=== PATIENT | male | born 1995 | race Two or more races ===

== ENCOUNTER 2018-07-01 20:18 | Emergency (ER) | payer SELFPAY ==
[2018-07-01] MEDS ORDERED: IBUPROFEN 600 MG TABLET PO ONE (23:00)
[2018-07-01] MEDS ORDERED: LIDOCAINE 2% VISCOUS SOLN 20 ML UDCUP PO ONE (23:00)
[2018-07-01] MEDS ORDERED: HYDROCODONE/ACETAMINOPHEN 5-325 MG (6 TAB/ER DISP) PO PRN (23:01)
--- NOTE | 2018-07-01 23:06 | ER Document Report ---
HPI - HPI Pain Level: 5 Notes: Patient with complaint of pain to left lower jaw near tooth #19. Patient reports his filling fell out. Patient reports pain started this morning, reports has taken ibuprofen with no relief. Past Medical History - General Information source: Patient - Social History Smoking Status: Current Some Day Smoker Smoking Education Provided: No Frequency of alcohol use: None Drug Abuse: None Family History: Reviewed & Not Pertinent - Medical History Medical History: Negative Past Surgical History: Reports: Hx Appendectomy - Immunizations Hx Diphtheria, Pertussis, Tetanus Vaccination: Yes Vertical Provider Document - CONSTITUTIONAL Notes: PHYSICAL EXAMINATION: GENERAL: Well-appearing, well-nourished and in no acute distress. HEAD: Atraumatic, normocephalic. EYES: Pupils equal round extraocular movements intact, conjunctiva are normal. ENT: Nares patent, erythema noted to left lower gumline along teeth 18 through 20, dental filling appears to be missing from tooth #19. NECK: Normal range of motion LUNGS: No respiratory distress Musculoskeletal: Normal range of motion NEUROLOGICAL: Normal speech, normal gait. PSYCH: Normal mood, normal affect. SKIN: Warm, Dry, normal turgor, no rashes or lesions noted. - INFECTION CONTROL TRAVEL OUTSIDE OF THE [place] IN LAST 30 DAYS: No Course - Re-evaluation Re-evalutation: Patient will be given analgesics and placed on penicillin, patient given information for [facility] for probable tooth extraction. Discharge - Discharge Clinical Impression: Pain, dental Condition: Stable Disposition: HOME, SELF-CARE Additional Instructions: TOOTHACHE: Your pain is due to dental decay. The tooth must be repaired in order for you to feel better. You will, therefore, be referred to a dentist. We do not have dentists on the staff at [facility]. Severe swelling or drainage around a tooth usually means a dental abscess. This also requires evaluation and treatment by the dentist, but antibiotics may be prescribed while awaiting dental treatment. You should be rechecked immediately if you develop major swelling of the face, increasing pain, a lump in the jaw or gums, headache, difficulty swallowing, or fever. ORAL NARCOTIC MEDICATION: You have been given a prescription for pain control. This medication is a narcotic. It's best taken with food, as nausea can result if taken on an empty stomach. Don't operate machinery or drive within six hours of taking this medication. Do not combine this medicine with alcohol, or with any medication which can cause sedation (such as cold tablets or sleeping pills) unless you get permission from the physician. Narcotics tend to cause constipation. If possible, drink plenty of fluids and eat a diet high in fiber and fruits. Please be aware that prescription narcotics also have the potential for abuse. People become addicted to these medications because of the general sense of wellbeing that they induce. This feeling along with a significant reduction in tension, anxiety, and aggression provides a stimulating seductive quality to these drugs. Once your pain is under control, we encourage you to discard your unused narcotics. PENICILLIN V K: You have been given a prescription for Penicillin VK. Your physician has determined that this is the best antibiotic for your condition. Pen VK can be taken with meals, however more of the antibiotic gets into the bloodstream if it's taken on an empty stomach. Penicillin usually has no side effects. However, allergy to penicillins is common. If you have had an allergic reaction to any drug of the penicillin family, you should never take any other penicillin. Notify your doctor at once if you develop hives, itching, swelling, faintness, or shortness of breath. FOLLOW-UP CARE: You have been referred for follow-up care to the dentists listed below. Call the dentists office for an appointment as you were instructed or within the next two days. If you experience worsening or a significant change in your symptoms, notify the physician immediately or return to the Emergency Department at any time for re-evaluation. Please take ibuprofen 600 mg every 6 hours for the pain. Please be sure to call and schedule an appointment with your dentist. [facility] [address] Prescriptions: Penicillin V Potassium [Penicillin Vk 500 mg Tablet] 500 mg PO BID #20 tablet
[2018-07-02 03:21] VITALS: BP 135/87
== END 2018-07-01 23:35 | disposition home or self-care (01) ==
LOC: ER 20:18
DX: K08.89 Other specified disorders of teeth and supporting structures (principal); R68.84 Jaw pain; F17.200 Nicotine dependence, unspecified, uncomplicated
CPT/HCPCS: 99282; J3490

== ENCOUNTER 2018-07-11 11:40 | Emergency (ER) | payer SELFPAY ==
[2018-07-11] MEDS ORDERED: DIPHENHYDRAMINE HCL 50 MG/ML VIAL IV ONE (12:00)
[2018-07-11] MEDS ORDERED: NORMAL SALINE 1000 ML 1,000 ML IV ONE (12:00)
[2018-07-11] MEDS ORDERED: KETOROLAC TROMETHAMINE INJ/PF 30 MG/1 ML SDV IV ONE (12:00)
[2018-07-11] MEDS ORDERED: CLINDAMYCIN 900 MG/D5W RTU 900 MG/50 ML RTUPB IV ONE (12:01)
[2018-07-11] MEDS ORDERED: DEXAMETHASONE SOD PHOS INJ 10 MG/1 ML VIAL IV ONE (12:01)
[2018-07-11] MEDS ORDERED: FAMOTIDINE INJ/PF 20 MG/2 ML SDV IV ONE (12:02)
--- NOTE | 2018-07-11 12:20 | ER Document Report ---
ED General - General Chief Complaint: Allergic Reaction Stated Complaint: MOUTH SWELLING,TINGLING HANDS/FEET Time Seen by Provider: 07/11/18 11:52 Notes: 23-year-old male to the emergency department complaining of possible allergic reaction. Patient states that he was seen here not too long ago for a tooth infection. Was given some pain medication but did not help. Patient states that he was forced to result in using somebody's fentanyl patch for his pain. Said he was doing fine but then woke up this morning with numbness and tingling on his face and hands and worsening pain in his left lower gumline area. Thinks it may be is having an allergic reaction. Patient is tearful and crying at this time. Patient was working today and was out in the heat began to feel like he was having numbness and tingling to his hands and face. TRAVEL OUTSIDE OF THE [place] IN LAST 30 DAYS: No - HPI Onset: Just prior to arrival Quality of pain: Throbbing Severity: Moderate Pain Level: 3 Associated symptoms: Other - Lip swelling, facial swelling - Related Data Allergies/Adverse Reactions: No Known Allergies Allergy (Verified 07/11/18 11:43) Past Medical History - General Information source: Patient - Social History Smoking Status: Current Every Day Smoker Frequency of alcohol use: Occasional Drug Abuse: Other - Usage of someone else's fentanyl patch Lives with: Family Family History: Reviewed & Not Pertinent - Medical History Medical History: Negative Renal/ Medical History: Denies: Hx Peritoneal Dialysis Past Surgical History: Reports: Hx Appendectomy - Immunizations Hx Diphtheria, Pertussis, Tetanus Vaccination: Yes Review of Systems - Review of Systems Notes: Constitutional: denies: Chills, Diaphoresis, Fever, Malaise, Weakness EENT: Planing of swelling to the left gumline, facial swelling, lip swelling, eye swelling Cardiovascular: denies: Palpitations, Heart racing, Orthopnea, Dyspnea, Chest pain Respiratory: denies: Cough, Hurts to breathe, Wheezing, Shortness of breath Gastrointestinal: denies: Abdominal pain, Diarrhea, Nausea, Vomiting, Black stools, bright red blood in stool Genitourinary: denies: Burning, Dysuria, Discharge, Frequency, Flank pain, Hematuria Musculoskeletal: denies: Joint pain, Joint swelling, Muscle pain, Muscle stiffness, back pain Hematologic/Lymphatic: denies: Anemia, Easy bleeding, Easy bruising, Blood clots Neurological/Psychological: denies: Confusion, Dementia, Depression, Loss of consciousness. Does complain of numbness and tingling to the hands feet and face Skin: No lesions, no masses, no skin breakdown, no abscesses Physical Exam - Vital signs Vitals: Temp Pulse Resp BP Pulse Ox 98 F 118 H 22 H 105/63 100 07/11/18 11:47 07/11/18 11:47 07/11/18 11:47 07/11/18 11:47 07/11/18 11:47 Interpretation: Tachycardic - General General appearance: Appears well, Alert, Anxious In distress: Moderate - HEENT Head: Normocephalic, Atraumatic Eyes: Normal Pupils: PERRL Notes: Tenderness palpation around the gumline left lower molar area. No obvious draining. There is poor dentition. There is questionable mild amount of swelling to the lower lip. The bilateral periorbital areas appear to be edematous and swollen. The oropharynx is intact. There does not appear to be any uvular edema or swelling under the tongue. No tongue swelling. - Respiratory Respiratory status: No respiratory distress Chest status: Nontender Breath sounds: Normal Chest palpation: Normal - Cardiovascular Rhythm: Tachycardia Heart sounds: Normal auscultation Murmur: No - Abdominal Inspection: Normal Distension: No distension Bowel sounds: Normal Tenderness: Nontender Organomegaly: No organomegaly - Back Back: Normal, Nontender - Extremities General upper extremity: Normal inspection, Nontender, Normal color, Normal ROM , Normal temperature General lower extremity: Normal inspection, Nontender, Normal color, Normal ROM , Normal temperature, Normal weight bearing. No: Genesis's sign - Neurological Neuro grossly intact: Yes Cognition: Normal Orientation: AAOx4 Leidy Coma Scale Eye Opening: Spontaneous [place] Coma Scale Verbal: Oriented [place] Coma Scale Motor: Obeys Commands Leidy Coma Scale Total: 15 Speech: Normal Motor strength normal: LUE, RUE, LLE, RLE Sensory: Normal - Psychological Associated symptoms: Agitated, Anxious, Restlessness, Tearful - Skin Skin Temperature: Warm Skin Moisture: Dry Skin Color: Normal Course - Re-evaluation Re-evalutation: 07/11/18 14:36 Patient is been observed now for almost 3 hours. Labs are fairly unremarkable. Patient's respiratory rate is within acceptable range. Vital signs are normal. Not hypoxic. No pinpoint pupils. Easily arousable. 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 Feeling much better at this time. IV antibiotics have been given. Uncomfortable given patient anything stronger with this fentanyl use. Long instructions were given to account planner that evening he needs to be observed for any type of respiratory depression or altered mental status. This seems to be a reliable individual with him who is of sound mind and is followed my instructions 07/11/18 14:40 Laboratory 07/11/18 07/11/18 07/11/18 12:09 12:20 12:20 WBC 9.2 RBC 4.47 Hgb 13.9 Hct 39.0 MCV 87 MCH 31.2 MCHC 35.7 RDW 12.4 Plt Count 209 Seg Neutrophils % 83.7 H Lymphocytes % 7.1 L Monocytes % 8.3 Eosinophils % 0.3 Basophils % 0.6 Absolute Neutrophils 7.8 Absolute Lymphocytes 0.7 Absolute Monocytes 0.8 Absolute Eosinophils 0.0 Absolute Basophils 0.1 Sodium 139.3 Potassium 3.8 Chloride 102 Carbon Dioxide 23 Anion Gap 14 BUN 14 Creatinine 0.94 Est GFR ( Amer) > 60 Est GFR (Non-Af Amer) > 60 Glucose 99 Calcium 9.9 Total Bilirubin 1.0 Direct Bilirubin 0.2 Neonat Total Bilirubin Not Reportable Neonat Direct Bilirubin Not Reportable Neonat Indirect Bili Not Reportable AST 26 ALT 33 Alkaline Phosphatase 55 Total Protein 7.2 Albumin 4.4 Urine Color YELLOW Urine Appearance CLEAR Urine pH 7.0 Ur Specific [place] 1.024 Urine Protein NEGATIVE Urine Glucose (UA) NEGATIVE Urine Ketones 80 H Urine Blood NEGATIVE Urine Nitrite NEGATIVE Urine Bilirubin NEGATIVE Urine Urobilinogen NEGATIVE Ur Leukocyte Esterase NEGATIVE Urine WBC (Auto) 3 Urine RBC (Auto) 0 Urine Mucus (Auto) OCC Urine Ascorbic Acid NEGATIVE - Vital Signs Vital signs: Temp Pulse Resp BP Pulse Ox 98 F 118 H 16 116/66 99 07/11/18 11:47 07/11/18 11:47 07/11/18 13:01 07/11/18 14:01 07/11/18 14:01 - Laboratory Result Diagrams: 07/11/18 12:20 07/11/18 12:20 Laboratory results interpreted by me: 07/11/18 07/11/18 12:09 12:20 Seg Neutrophils % 83.7 H Lymphocytes % 7.1 L Urine Ketones 80 H - EKG Interpretation by Me EKG shows normal: Sinus rhythm, [place], Intervals, QRS Complexes, ST-T Waves Discharge - Discharge Clinical Impression: Infected dental caries Adverse reaction to narcotic drug Qualifiers: Encounter type: initial encounter Qualified Code(s): T40.605A - Adverse effect of unspecified narcotics, initial encounter Condition: Good Disposition: HOME, SELF-CARE Instructions: Medication Side Effects ([facility]), Dental Infection or Abscess ([facility]) Additional Instructions: Overdose / Ingestion You have taken more medication than you should have. After your evaluation and care, it is felt that your overdose is not likely to be harmful or of any significant consequences to you and you are being discharged. In the future, you should be careful not to take more medications than what is prescribed for you. Although your overdose does not seem to be of any danger to you at this time, if you develop any unusual or unexpected symptoms after your discharge, you should return to the Emergency Department immediately for re-evaluation. Prescriptions: Clindamycin HCl 300 mg PO QID 7 Days #28 capsule Ibuprofen [Motrin 800 mg Tablet] 800 mg PO Q8H PRN 10 Days #30 tab PRN Reason: For Pain Scale 3-4 Naloxone HCl [Narcan] 4 mg NS ONCE PRN 1 Days #1 spray PRN Reason: For Overdose Symptoms Forms: Return to Work
[2018-07-11 12:34] LABS: ABSOLUTE BASOPHILS # (AUTO) 0.1 10^3/uL (0.0-0.2); ABSOLUTE LYMPHOCYTES (AUTO) 0.7 10^3/uL (0.5-4.7); ABSOLUTE MONOCYTES (AUTO) 0.8 10^3/uL (0.1-1.4); ABSOLUTE NEUT (AUTO) 7.8 10^3/uL (1.7-8.2); BASOPHILS % (AUTO) 0.6 % (0-2); EOSINOPHILS % (AUTO) 0.3 % (0-6); HEMOGLOBIN 13.9 g/dL (13.5-17.0); LYMPHOCYTES % (AUTO) 7.1 % (13-45); MEAN CORPUSCULAR HEMOGLOBIN 31.2 pg (27.0-33.4); MEAN CORPUSCULAR HGB CONC 35.7 g/dL (32.0-36.0); MEAN CORPUSCULAR VOLUME 87 fl (80-97); MONOCYTES % (AUTO) 8.3 % (3-13); PLATELET COUNT 209 10^3/uL (150-450); RED BLOOD COUNT 4.47 10^6/uL (4.35-5.55); RED CELL DISTRIBUTION WIDTH 12.4 % (11.5-14.0); SEGMENTED NEUTROPHILS % (AUTO) 83.7 % (42-78); TOTAL CELLS COUNTED % (AUTO) 100 %; WHITE BLOOD COUNT 9.2 10^3/uL (4.0-10.5)
[2018-07-11 12:58] LABS: ALANINE AMINOTRANSFERASE 33 U/L (21-72); ALBUMIN 4.4 g/dL (3.5-5.0); ALKALINE PHOSPHATASE 55 U/L (38-126); ANION GAP 14 (5-19); ASPARTATE AMINO TRANSFERASE 26 U/L (17-59); BILIRUBIN,DIRECT 0.2 mg/dL (0.0-0.4); BLOOD UREA NITROGEN 14 mg/dL (7-20); CALCIUM 9.9 mg/dL (8.4-10.2); CARBON DIOXIDE 23 mmol/L (22-30); CHLORIDE 102 mmol/L (98-107); GLUCOSE 99 mg/dL (75-110); POTASSIUM 3.8 mmol/L (3.6-5.0); SODIUM 139.3 mmol/L (137-145); TOTAL PROTEIN 7.2 g/dL (6.3-8.2)
[2018-07-11 14:04] VITALS: BP 116/66
--- NOTE | 2018-07-11 14:21 | RADIOLOGY REPORT (SQ) ---
EXAM DESCRIPTION: CHEST SINGLE VIEW COMPLETED DATE/TIME: 07/11/2018 2:12 pm REASON FOR STUDY: hematemesis COMPARISON: None. EXAM PARAMETERS: NUMBER OF VIEWS: One view. TECHNIQUE: Single frontal radiographic view of the chest acquired. RADIATION DOSE: NA LIMITATIONS: None. FINDINGS: LUNGS AND PLEURA: No opacities, masses or pneumothorax. No pleural effusion. MEDIASTINUM AND HILAR STRUCTURES: No masses. Contour normal. HEART AND VASCULAR STRUCTURES: Heart normal in size. Normal vasculature. BONES: No acute findings. HARDWARE: None in the chest. OTHER: No other significant finding. IMPRESSION: NO ACUTE RADIOGRAPHIC FINDING IN THE CHEST. TECHNICAL DOCUMENTATION: JOB ID: [id number] [employer]- All Rights Reserved Reading location - IP/workstation name: [email or web address]
[2018-07-11 14:30] LABS: APPEARANCE,URINE CLEAR; BILIRUBIN,URINE NEGATIVE (NEGATIVE); COLOR,URINE YELLOW; GLUCOSE, URINE NEGATIVE (NEGATIVE); KETONES,URINE 80 mg/dL (NEGATIVE); LEUKOCYTE ESTERASE,URINE NEGATIVE (NEGATIVE); NITRITE,URINE NEGATIVE (NEGATIVE); PROTEIN,URINE NEGATIVE (NEGATIVE); URINE SPECIFIC GRAVITY 1.024; UROBILINOGEN,URINE NEGATIVE mg/dL (<2.0)
[2018-07-11 14:53] LABS: URINE AMPHETAMINES SCREEN NEGATIVE; URINE BARBITURATES SCREEN NEGATIVE; URINE BENZODIAZEPINES SCREEN NEGATIVE; URINE COCAINE SCREEN NEGATIVE; URINE MARIJUANA (THC) SCREEN UNCONFIRMED POSITIVE; URINE METHADONE SCREEN NEGATIVE; URINE PHENCYCLIDINE SCREEN NEGATIVE
--- NOTE | 2018-07-11 20:47 | EKG REPORT ---
SEVERITY:- NORMAL ECG - SINUS RHYTHM : Confirmed by: Isac Luis 11-Jul-2018 20:46:53
== END 2018-07-11 14:53 | disposition home or self-care (01) ==
LOC: ER 11:40
DX: K04.7 Periapical abscess without sinus (principal); R20.0 Anesthesia of skin; T40.605A Adverse effect of unspecified narcotics, initial encounter; X58.XXXA Exposure to other specified factors, initial encounter; F17.200 Nicotine dependence, unspecified, uncomplicated
CPT/HCPCS: 93005; 99284; 96375; 96365; 96367; 36415; 87040; 85025; 80053; 81001; 80307; 71045; 93010; J1200; J1885; J7030; S0028; J1100

== ENCOUNTER 2018-08-30 11:10 | Emergency (ER) | payer SELFPAY ==
[2018-08-30] MEDS ORDERED: DIPH/PERTUSS(ACELL)/TETANUS VAC/PF 0.5 ML SYR (>=10YO) IM ONE (11:28)
[2018-08-30] MEDS ORDERED: LIDOCAINE 1%/EPINEPHRINE INJ 20 ML VIAL INJ ONE (11:33)
--- NOTE | 2018-08-30 11:41 | ER Document Report ---
HPI - HPI Patient complains to provider of: Leg laceration Onset: Just prior to arrival Onset/Duration: Sudden Quality of pain: Achy Pain Level: 3 Context: Patient states that he was changing on a broken window in the glass shattered cutting his left leg. Patient is uncertain when his last tetanus immunization was. Associated Symptoms: Other - Left thigh laceration Exacerbated by: Denies Relieved by: Denies Similar symptoms previously: No Recently seen / treated by doctor: No - ROS ROS below otherwise negative: Yes Systems Reviewed and Negative: Yes All other systems reviewed and negative - CONSTITUTIONAL Constitutional: DENIES: Fever - NEURO Neurology: DENIES: Weakness - MUSCULOSKELETAL Musculoskeletal: REPORTS: Extremity pain - DERM Skin Problems: Laceration Past Medical History - General Information source: Patient - Social History Smoking Status: Never Smoker Frequency of alcohol use: None Drug Abuse: None 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 IN LAST 30 DAYS: No - HEENT HEENT: Atraumatic, Normocephalic - NECK Neck: Normal Inspection - RESPIRATORY Respiratory: No Respiratory Distress - CARDIOVASCULAR Pulses: Normal: Popliteal - MUSCULOSKELETAL/EXTREMETIES Musculoskeletal/Extremeties: MAEW, FROM, Tender - tenderness to left thigh laceration, No Edema - NEURO Level of Consciousness: Awake, Alert, Appropriate Motor/Sensory: No Motor Deficit, No Sensory Deficit - DERM Integumentary: Warm, Dry, Laceration - 4 cm laceration to left thigh Procedures - Laceration/Wound Repair Left Thigh Wound length (cm): 4 Wound's Depth, Shape: Linear Laceration pre-procedure: Other - allie ventura Anesthetic type: 1% Lidocaine w/epi Volume Anesthetic (mLs): 3 Wound explored: Clean Wound Repaired With: Sutures Suture Size/Type: 4:0, Prolene Number of Sutures: 8 Layer Closure?: No Post-procedure wound care: Sterile dressing applied Post-procedure NV exam normal: Yes Complications: No Adult Front & Back picture: 1 - lac Discharge - Discharge Clinical Impression: Thigh laceration Qualifiers: Encounter type: initial encounter Laterality: left Qualified Code(s): S71.112A - Laceration without foreign body, left thigh, initial encounter Condition: Stable Disposition: HOME, SELF-CARE Instructions: Laceration Care ([facility]), Tetanus Immunization Given ([facility]) Additional Instructions: Return immediately for any new or worsening symptoms Followup with your primary care provider, call tomorrow to make a followup appointment Suture removal in 14 [address]errals: [facility] ([place], [place]) [Provider Group] - Follow up as needed
[2018-08-30 13:03] VITALS: BP 117/63
--- NOTE | 2018-08-30 13:06 | RADIOLOGY REPORT (SQ) ---
EXAM DESCRIPTION: FEMUR LEFT COMPLETED DATE/TIME: 08/30/2018 12:19 pm REASON FOR STUDY: leg lac, ? FB COMPARISON: None. NUMBER OF VIEWS: Two views. TECHNIQUE: Two radiographic images acquired of the left femur to include hip and knee in at least on e projection. LIMITATIONS: None. FINDINGS: MINERALIZATION: Normal. BONES: No acute fracture. No worrisome bone lesions. SOFT TISSUES: No obvious swelling or foreign body. OTHER: No other significant finding. IMPRESSION: NEGATIVE STUDY OF THE LEFT FEMUR. NO RADIOGRAPHIC EVIDENCE OF ACUTE INJURY. TECHNICAL DOCUMENTATION: JOB ID: [id number] [employer]- All Rights Reserved Reading location - IP/workstation name: [email or web address]
== END 2018-08-30 13:00 | disposition home or self-care (01) ==
LOC: ER 11:10
PROC: 0HQJXZZ Repair Left Upper Leg Skin, External Approach (ICD-10-PCS; principal; 2018-08-30)
DX: S71.112A Laceration without foreign body, left thigh, initial encounter (principal); M79.605 Pain in left leg; W25.XXXA Contact with sharp glass, initial encounter
CPT/HCPCS: 99283; 90471; 73552; 90715; 12002; J3490

== ENCOUNTER 2018-09-14 18:09 | Emergency (ER) | payer SELFPAY ==
[2018-09-14 18:13] VITALS: BP 125/76
--- NOTE | 2018-09-14 19:31 | ER Document Report ---
ED Suture/Wound Recheck - General Chief Complaint: Suture Removal Stated Complaint: SUTURE REMOVAL Time Seen by Provider: 09/14/18 19:20 Notes: Patient is a 23-year-old male that comes to the emergency department for chief complaint of suture removal. He states that 2 weeks ago he had a laceration from glass caused over his left mid distal thigh. Denies any complaints, states the area has started to itch but is not painful, red, draining, and he has not had any fevers. TRAVEL OUTSIDE OF THE [place] IN LAST 30 DAYS: No - Related Data Allergies/Adverse Reactions: No Known Allergies Allergy (Verified 09/14/18 18:09) Past Medical History - General Information source: Patient - Social History Smoking Status: Unknown if Ever Smoked Chew tobacco use (# tins/day): No Frequency of alcohol use: Rare Drug Abuse: None Lives with: Family Family History: Reviewed & Not Pertinent Patient has suicidal ideation: No Patient has homicidal ideation: No - Medical History Medical History: Negative Renal/ Medical History: Denies: Hx Peritoneal Dialysis Past Surgical History: Reports: Hx Appendectomy - Immunizations Hx Diphtheria, Pertussis, Tetanus Vaccination: Yes Review of Systems - Review of Systems Constitutional: No symptoms reported EENT: No symptoms reported Cardiovascular: No symptoms reported Respiratory: No symptoms reported Gastrointestinal: No symptoms reported Genitourinary: No symptoms reported Male Genitourinary: No symptoms reported Musculoskeletal: No symptoms reported Skin: See HPI Hematologic/Lymphatic: No symptoms reported Neurological/Psychological: No symptoms reported Physical Exam - Vital signs Vitals: Temp Pulse Resp BP Pulse Ox 98.2 F 74 14 125/76 97 09/14/18 18:12 09/14/18 18:12 09/14/18 18:12 09/14/18 18:12 09/14/18 18:12 - General General appearance: Appears well In distress: None - HEENT Head: Normocephalic, Atraumatic Eyes: Normal Extraocular movements intact: Yes Eyelashes: Normal Pupils: PERRL - Respiratory Respiratory status: No respiratory distress Breath sounds: Normal - Cardiovascular Rhythm: Regular. No: Tachycardia Heart sounds: Normal auscultation, S1 appreciated, S2 appreciated - Abdominal Inspection: Normal Tenderness: Nontender - Back Back: Normal, Nontender - Extremities General upper extremity: Normal inspection, Nontender, Normal ROM, Normal strength General lower extremity: Nontender, Normal ROM, Normal strength, Other - 8 sutures in the medial aspect of the distal left thigh. Good granulation, good wound closure, no dehiscence, no drainage, no noted erythema or tenderness. - Skin Skin Temperature: Warm Skin Moisture: Dry Skin Color: Normal Course - Re-evaluation Re-evalutation: 8 sutures removed without incident. Wound with good closure, no evidence of infection at this time. - Vital Signs Vital signs: Temp Pulse Resp BP Pulse Ox 98.2 F 74 14 125/76 97 09/14/18 18:12 09/14/18 18:12 09/14/18 18:12 09/14/18 18:12 09/14/18 18:12 Discharge - Discharge Clinical Impression: Encounter for removal of sutures Condition: Stable Disposition: HOME, SELF-CARE Additional Instructions: The wound appears to have healed without any complication. Gently clean away any skin over the course of the next few days. Follow-up with primary care. Return for any concerning symptoms including breaking open of the area, swelling or redness of the area, discharge or fever, or any other concerning symptoms.
== END 2018-09-14 19:30 | disposition home or self-care (01) ==
LOC: ER 18:09
DX: S71.112D Laceration without foreign body, left thigh, subsequent encounter (principal); W25.XXXD Contact with sharp glass, subsequent encounter